=== PATIENT | male | born 1985 | race Caucasian/White ===

== ENCOUNTER 2017-01-03 20:11 | Emergency (ER) | payer SELFPAY ==
[~2017-01-03] VITALS: Ht 180.3 cm; Wt 93.6 kg
[~2017-01-03 20:11] MED LIST: CEPH500C3 PO
[2017-01-03 20:16] VITALS: BP 123/83; PULSE 92; RESP 16; TEMP 98.1; O2SAT 97
--- NOTE | 2017-01-03 20:48 | PD ---
HPI Chief Complaint: Musculoskeletal Complaint Time Seen by Provider: 20:47 Travel History International Travel<30 days: No Contact w/Intl Traveler<30days: No Traveled to known affect area: No History of Present Illness HPI 31-year-old male presents to the emergency department for evaluation of left foot pain. Patient states that he's had pain on the top of his left foot for about 8 weeks. Denies any specific injury or trauma to his foot. States that he thought that the pain went away on its own. States that the pain is aggravated with movement of his foot and with walking. Alleviated with rest. States that he has tried Tylenol and ibuprofen with minimal improvement of symptoms. Denies any numbness or tingling, weakness. He has been unable to rest the foot as he has continued working on it. States that he has also had a productive cough with yellow sputum for the past 5 days with subjective fever. Patient has a 10 year smoking history. States he had asthma as a child but denies any lung disease. No other complaints. PFSH Past Medical History Asthma: Yes ( A CHILD) Tetanus Vaccination: < 5 Years Influenza Vaccination: No Past Surgical History Surgical History: No Previous Surgery Social History Alcohol Use: No Tobacco Use: Yes (1PPD) Substance Use: Yes (MJ) Allergies-Medications (Allergen,Severity, Reaction): Coded Allergies: No Known Allergies (Unverified , 01/03/17) Reported Meds & Prescriptions Reported Meds & Active Scripts Active Prednisone 20 Mg Tab 20 Mg PO BID 5 Days Zithromax Z-Dane (Azithromycin) 250 Mg Dspk 250 Mg PO DIRECTED 500 MG (2 tabs) day 1, then 1 tab days 2-5. Review of Systems Except as stated in HPI: all other systems reviewed are Neg Physical Exam Narrative GENERAL: Well-nourished and well-developed pleasant male patient in no acute distress who is nontoxic appearing. SKIN: Warm and dry. HEAD: Normocephalic and atraumatic. EYES: No injection, drainage, or hyphema noted. PERRLA. EOMI. ENT: No nasal drainage noted. Oropharynx is clear. NECK: Supple and the trachea is midline. CARDIOVASCULAR: Regular rate and rhythm. RESPIRATORY: Slight wheeze in left lung base. No accessory muscle use, rhonchi , or crackles. MUSCULOSKELETAL: Mild tenderness to palpation of mid dorsum of left foot. No abnormality noted, no swelling or masses. Pain is elicited with varus range of motion. DP pulses are 2+ bilaterally. No obvious deformities, swelling, cyanosis, or ecchymosis is present throughout the upper and lower extremities. Patient has full range of motion without any signs of neurovascular compromise. NEUROLOGICAL: Awake, alert, and oriented. Normal speech and gait. Cranial nerves are grossly intact. Data Data Last Documented VS Vital Signs Date Time Temp Pulse Resp B/P Pulse Ox O2 Delivery O2 Flow Rate FiO2 01/03/17 20:16 98.1 92 16 123/83 97 Orders Prednisone (Deltasone) (01/03/17 21:00) MDM Medical Decision Making Medical Screen Exam Complete: Yes Emergency Medical Condition: Yes Differential Diagnosis Bronchitis versus URI versus pneumonia versus foot strain versus sprain versus cyst versus spur Narrative Course 31-year-old male presents to the emergency department for evaluation of left foot pain and productive cough. Patient is afebrile, vital signs are stable. No traumatic injury to the left foot. History and physical examination are consistent with left foot strain. He also has acute bronchitis and will be treated with a Z-Dane and prednisone. The prednisone should also treat the inflammation causing his foot pain. Discussed supportive care. He is advised follow-up as an outpatient with PCP. Patient verbalizes understanding and agreement with treatment plan. Diagnosis Primary Impression: Acute bronchitis Qualified Code: J20.9 - Acute bronchitis, unspecified organism Additional Impression: Strain of foot, left Qualified Code: S96.912A - Strain of foot, left, initial encounter Referrals: Primary Care Physician Patient Instructions: Acute Bronchitis (ED), Foot Sprain (ED), General Instructions Additional Instructions: Rest. Take omic-[id number] Mucinex DM. Apply ice for 20 minutes on, 20 minutes off. Take medications as prescribed with food and a full glass of water. Follow-up with your Primary Care Physician. Return to the ED for any acute worsening of symptoms. Med/Other Pt SpecificInfo: Prescription(s) given Scripts Prednisone 20 Mg Tab20 Mg PO BID 5 Days Ref 0 Prov:Alan Ayala MD 01/03/17 Azithromycin (Zithromax Z-Dane)250 Mg [id number] Mg PO DIRECTED #1 DSPK Ref 0 500 MG (2 tabs) day 1, then 1 tab days 2-5. Prov:Alan Ayala MD 01/03/17 Disposition: 01 DISCHARGE HOME Condition: Stable Ernestine Cancino Jan 03, 2017 20:48
[2017-01-03] MEDS ORDERED: PRED20 PO (20:52)
[2017-01-03] MEDS ORDERED: ZITHTAB PO (20:52)
[2017-01-03] MEDS ORDERED: predniSONE 20 MG TAB PO ONE (21:00)
== END 2017-01-03 21:04 | disposition home or self-care (01) ==
LOC: PHEFT 20:11
DX: J20.9 Acute bronchitis, unspecified (principal); S96.912A Strain of unspecified muscle and tendon at ankle and foot level, left foot, initial encounter; F17.200 Nicotine dependence, unspecified, uncomplicated; Z87.09 Personal history of other diseases of the respiratory system; X58.XXXA Exposure to other specified factors, initial encounter
CPT/HCPCS: 99283; J7512

== ENCOUNTER 2017-09-02 05:27 | Emergency (ER) | payer SELFPAY ==
[~2017-09-02] VITALS: Ht 180.3 cm; Wt 96.0 kg
[~2017-09-02 05:27] MED LIST changes: +ALBU6.7H INH; -CEPH500C3 PO; +PRED-503 PO
[2017-09-02 05:29] VITALS: BP 134/85; PULSE 121; RESP 22; TEMP 98.1; O2SAT 94
[2017-09-02] MEDS ORDERED: DEXAMETHASONE SOD PHOS 4 MG/ML VIAL IM ONE (05:45)
[2017-09-02 05:46] VITALS: BP 135/93; PULSE 11; PULSE 110; RESP 26; O2SAT 95
--- NOTE | 2017-09-02 05:52 | PD ---
HPI Chief Complaint: Respiratory Symptoms Time Seen by Provider: 05:40 Travel History International Travel<30 days: No Contact w/Intl Traveler<30days: No Traveled to known affect area: No History of Present Illness HPI PATIENT C/O WHEEZING, WORSENING OVER LAST 2 DAYS, HAS H/O ASTHMA A CHILD, USED TO SMOKE CIGARETTES UP UNTIL LAST MONTH WHEN HE WAS TREATED FOR REACTIVE AIRWAY DISEASE. DOES NOT HAVE INHALER AVAILABLE ANYMORE. PATIENT DENIES ANY ASSOC FACTORS OF FEVER/PROD COUGH/CP/N/V/D/ABDPAIN/BACKPAIN/. PFSH Past Medical History Asthma: Yes ( A CHILD) Diminished Hearing: No Respiratory: Yes (ASTHMA A CHILD) Immunizations Current: No Influenza Vaccination: No Past Surgical History Surgical History: No Previous Surgery Social History Alcohol Use: No Tobacco Use: No (QUIT 1 MONTH AGO ) Substance Use: Yes (MJ...QUIT 1 MONTH AGO ) Allergies-Medications (Allergen,Severity, Reaction): Coded Allergies: No Known Allergies (Verified Adverse Reaction, Unknown, 09/02/17) Reported Meds & Prescriptions Reported Meds & Active Scripts Active No Active Prescriptions or Reported Medications Review of Systems General / Constitutional: No: Fever Eyes: No: Visual changes HENT: No: Headaches Cardiovascular: No: Chest Pain or Discomfort Respiratory: Positive: Wheezing Gastrointestinal: No: Abdominal Pain Genitourinary: No: Dysuria Musculoskeletal: No: Pain Skin: No Rash Neurologic: No: Weakness Psychiatric: No: Depression Endocrine: No: Polydipsia Hematologic/Lymphatic: No: Easy Bruising Physical Exam Narrative GENERAL: SKIN: Warm and dry. HEAD: Atraumatic. Normocephalic. EYES: Pupils equal and round. No scleral icterus. No injection or drainage. ENT: No nasal bleeding or discharge. Mucous membranes pink and moist. NECK: Trachea midline. No JVD. CARDIOVASCULAR: MILD TACHYCARDIA 110, Regular rhythm. RESPIRATORY: No accessory muscle use. WHEEZING BILATERALLY, GOOD TV GASTROINTESTINAL: Abdomen soft, non-tender, nondistended. MUSCULOSKELETAL: Extremities without clubbing, cyanosis, or edema. No obvious deformities. NEUROLOGICAL: Awake and alert. No obvious cranial nerve deficits. Motor grossly within normal limits. Five out of 5 muscle strength in the arms and legs. Normal speech. PSYCHIATRIC: Appropriate mood and affect; insight and judgment normal. Vital Signs Date Time Temp Pulse Resp B/P (MAP) Pulse Ox O2 Delivery O2 Flow Rate FiO2 09/02/17 05:44 94 Room Air 09/02/17 05:29 98.1 121 22 134/85 (101) 94 Room Air Data Data Last Documented VS Vital Signs Date Time Temp Pulse Resp B/P (MAP) Pulse Ox O2 Delivery O2 Flow Rate FiO2 09/02/17 05:46 110 26 135/93 (107) 95 Room Air 09/02/17 05:29 98.1 Orders Orders Chest, Single Ap (09/02/17 05:44) Albuterol Neb (Albuterol Neb) (09/02/17 05:45) Dexamethasone Inj (Decadron Inj) (09/02/17 05:45) MDM Medical Decision Making Medical Screen Exam Complete: Yes Emergency Medical Condition: Yes Medical Record Reviewed: Yes Differential Diagnosis PNA V BRONCHOSPASM V PTX Narrative Course CXR NEG FOR PNA/PTX....PATIENT'S HEART RATE DECREASED TO 100, PULSE OX INCREASED TO 98 ON RA, TACHYPNEA RESOLVED, WHEEZING RESOLVED AFTER TREATMENTS....PATIENT IS STABLE FOR D/C AND WILL BE REFERRED TO FAMILY PRACTICE NURSE PRACTITIONER FOR FURTHER EVALUATION Diagnosis Primary Impression: Reactive airway disease with wheezing Qualified Codes: J45.20 - Mild intermittent asthma, uncomplicated Referrals: Tigist Escoto MD TO FURTHER EVALUATE THE CAUSE OF YOUR WHEEZING Patient Instructions: General Instructions, Reactive Airways Disease (ED) Scripts Albuterol 6.7 GM Inh (Proventil Hfa 6.7 GM Inh) 90 Mcg/Act Aer 1 PUFF INH Q4H Y for SHORTNESS OF BREATH, #1 INHALER 0 Refills Prov: Carlos Loza MD 09/02/17 Methylprednisolone Dosepak (Medrol Dosepak) 4 Mg Dspk 4 MG PO DIRECTED, #1 DSPK 0 Refills Per Pharmacist direction Prov: Carlos Loza MD 09/02/17 Disposition: 01 DISCHARGE HOME Condition: Stable Carlos Loza MD Sep 02, 2017 05:52
--- NOTE | 2017-09-02 06:03 | RADRPT ---
EXAM DATE/TIME: 09/02/2017 05:55 [facility] COMPARISON: No previous studies available for comparison. INDICATIONS : Wheezing. MEDICAL HISTORY : Childhood asthma SURGICAL HISTORY : None. ENCOUNTER: Initial ACUITY: 1 day PAIN SCORE: 0/10 LOCATION: Bilateral chest FINDINGS: A single view of the chest demonstrates the lungs to be symmetrically aerated without evidence of mas s, infiltrate or effusion. The cardiomediastinal contours are unremarkable. Osseous structures are intact. CONCLUSION: No evidence of acute cardiopulmonary disease. Vernon Zaragoza MD on September 02, 2017 at 6:01 Board Certified Radiologist. This report was verified electronically.
[2017-09-02] MEDS ORDERED: ALBU6.7H INH (06:16)
[2017-09-02] MEDS ORDERED: MEDR4PAK PO (06:16)
[2017-09-02] MEDS: RESP: ALBUTEROL 2.5 MG/3 ML NEB (SCH) INH ×2 (06:28→06:29)
== END 2017-09-02 06:48 | disposition home or self-care (01) ==
LOC: NEPC 05:27
DX: J45.909 Unspecified asthma, uncomplicated (principal)
CPT/HCPCS: 71010; 94640; 94664; 96372; 99284; J1100; J7613